=== PATIENT | female | born 1995 | race Caucasian/White ===

== ENCOUNTER → 2016-12-25 | Outpatient (CLI) | payer BC ==
--- NOTE | 2016-12-25 16:17 | KCIC ---
SHOULDER 2+V RIGHT History: Right shoulder pain after injury 1.5 weeks ago Comparison: None. Findings: 3 views of the right shoulder submitted. No acute fracture or dislocation is identified. Impression: 1. No acute osseous abnormality is identified. Electronically signed by: Cas Coffey MD (12/25/2016 4:14 PM) [id number]
== END | disposition home or self-care (01) ==
LOC: KCIC 14:58
PROVIDERS: ATTEND Physician Assistant
DX: S49.91XD Unspecified injury of right shoulder and upper arm, subsequent encounter (principal); X58.XXXD Exposure to other specified factors, subsequent encounter
CPT/HCPCS: 73030

== ENCOUNTER → 2017-09-24 | Outpatient (CLI) | payer BC | END | disposition home or self-care (01) | LOC: KCIC 16:04 | DX: M79.89 Other specified soft tissue disorders (principal) | CPT/HCPCS: 73610 ==